=== PATIENT | female | born 1955 | race African-American/Black ===

== ENCOUNTER 2020-07-01 00:37 | Emergency (ER) | payer OTHER ==
[~2020-07-01] VITALS: Ht 154.9 cm; Wt 94.8 kg
[2020-07-01] MEDS ORDERED: HYDROCODONE/APAP 5-325MG TABLET ONE (01:14)
[2020-07-01] MEDS ORDERED: HYDROCODONE/APAP 5-325MG TABLET PO ONE (01:15)
[2020-07-01] MEDS ORDERED: HYDR-3972 PO (01:30)
[2020-07-01 01:43] VITALS: BP 114/96
== END 2020-07-01 01:43 | disposition home or self-care (01) ==
LOC: ER 00:49
DX: G89.21 Chronic pain due to trauma (principal); M25.511 Pain in right shoulder; S49.91XS Unspecified injury of right shoulder and upper arm, sequela; X58.XXXS Exposure to other specified factors, sequela; F17.210 Nicotine dependence, cigarettes, uncomplicated; Z59.0 Homelessness; Z88.6 Allergy status to analgesic agent
CPT/HCPCS: 73030; A4663

== ENCOUNTER 2021-08-13 23:11 | Emergency (ER) | payer OTHER ==
[~2021-08-13] VITALS: Ht 154.9 cm; Wt 72.6 kg
[~2021-08-13 23:11] MED LIST: HYDR-3972 PO
[2021-08-14] MEDS ORDERED: KETOROLAC TROMETHAMINE 60 MG INJ IM ONE ×2 (01:15→01:16)
[2021-08-14 01:23] LABS: HEMATOCRIT 35.2 % (31.2-41.9); MEAN CORPUSCULAR HEMOGLOBIN 22.3 uug (24.7-32.8); MEAN CORPUSCULAR VOLUME 68.9 fL (75.5-95.3); PLATELET COUNT (AUTO) 237 K/uL (179-408)
[2021-08-14 01:26] LABS: POTASSIUM 4.2 mmol/L (3.5-5.1)
[2021-08-14] MEDS ORDERED: NAPR-1164 PO (02:24)
[2021-08-14 03:26] VITALS: BP 108/62
[2021-08-14 04:05] LABS: EOSINOPHILS % (MANUAL) 2 % (0-8); LYMPHOCYTES % (MANUAL) 44 % (20-40); MONOCYTES % (MANUAL) 4 % (2-10); NEUTROPHILS % (MANUAL) 50 % (42-75)
== END 2021-08-14 02:34 | disposition home or self-care (01) ==
LOC: ER 23:18
DX: G89.29 Other chronic pain (principal); M25.511 Pain in right shoulder; M25.551 Pain in right hip; Z90.49 Acquired absence of other specified parts of digestive tract; S43.004S Unspecified dislocation of right shoulder joint, sequela; X58.XXXS Exposure to other specified factors, sequela; Z59.00 Homelessness unspecified; E11.9 Type 2 diabetes mellitus without complications; F20.9 Schizophrenia, unspecified; Z87.01 Personal history of pneumonia (recurrent); Z86.16 Personal history of COVID-19
CPT/HCPCS: 36415; 73502; 80048; 85007; 85025; 96372; 99284; J1885; 70030-TC

== ENCOUNTER 2023-10-31 02:08 | Emergency (ER) | payer MEDICAID, OTHER ==
[~2023-10-31] VITALS: Ht 162.6 cm; Wt 64.4 kg
[~2023-10-31 02:08] MED LIST changes: +NAPR-1164 PO
[2023-10-31] MEDS ORDERED: METF-440 PO (02:20)
[2023-10-31] MEDS ORDERED: DIVA500T2 PO (02:20)
[2023-10-31] MEDS ORDERED: QUET25TA PO (02:20)
[2023-10-31] MEDS ORDERED: NAPR-1009 PO (03:01)
[2023-10-31] MEDS ORDERED: NAPROXEN 500 MG TABLET ONE (05:55)
[2023-10-31] MEDS: NAPROXEN 500 MG TABLET PO ONE (06:05)
[2023-10-31 06:08] VITALS: BP 135/78; O2SAT 97
== END 2023-10-31 06:08 | disposition home or self-care (01) ==
LOC: ER 02:14
DX: M19.90 Unspecified osteoarthritis, unspecified site (principal); G89.29 Other chronic pain; J45.909 Unspecified asthma, uncomplicated; E11.9 Type 2 diabetes mellitus without complications; F17.210 Nicotine dependence, cigarettes, uncomplicated; Z59.00 Homelessness unspecified; Z88.5 Allergy status to narcotic agent; Z79.899 Other long term (current) drug therapy
CPT/HCPCS: A4606; A4663